=== PATIENT | male | born 1975 | race Caucasian/White ===

== ENCOUNTER 2017-08-30 19:12 | Emergency (ER) | payer OTHER | END 2017-08-30 20:30 | disposition left against medical advice (07) | LOC: ER 19:12 | DX: Z53.21 Procedure and treatment not carried out due to patient leaving prior to being seen by health care provider (principal) ==

== ENCOUNTER 2017-09-12 01:11 | Emergency (ER) | payer OTHER ==
[~2017-09-12] VITALS: Ht 182.9 cm; Wt 136.1 kg
--- NOTE | ~2017-09-12 | EKG ---
[address] [place] [address] ELECTROCARDIOGRAM REPORT Name: LINWOODSCHUYLER Keren Room #: [facility] [id number] Admission: 09/12/17 Attend Phys: Discharge: 09/12/17 Date of : 71 Report #: [id number] THIS REPORT FOR: //name// [facility] ED Test Date: 2017-09-12 Test Time: 01:25:00 Pat Name: SCHUYLER PALUMBO Department: Room: Gender: Typist: ANIKA : 1975 Requested By: John Rachel Order Number: [id number] MD: Foster Valenzuela Measurements Intervals [place] Rate: 108 P: 29 TN: 137 QRS: -4 QRSD: 93 T: 9 QT: 308 QTc: 413 Interpretive Statements Sinus tachycardia Low voltage, precordial leads No previous ECG available for comparison Electronically Signed On 09-12-2017 7:47:57 [employer] by Foster Valenzuela [email or web address] <ELECTRONICALLY SIGNED> By: Foster Valenzuela MD 09/12/17 0747 0125 0125 MD MARIAJOSE Vaughn
[2017-09-12] MEDS ORDERED: HEARTBURN RELIE20 MG PO (01:18)
[2017-09-12] MEDS ORDERED: NORCO 5-325 TA1 EACH PO (02:51)
[2017-09-12] MEDS ORDERED: NAPROSYN500 MG PO (02:51)
== END 2017-09-12 03:00 | disposition home or self-care (01) ==
LOC: ER 01:11
DX: M25.512 Pain in left shoulder (principal)

== ENCOUNTER 2017-10-23 19:39 | Emergency (ER) | payer OTHER ==
[~2017-10-23] VITALS: Ht 182.9 cm; Wt 127.0 kg
[~2017-10-23 19:39] MED LIST: HEARTBURN RELIE20 MG PO; NAPROSYN500 MG PO; NORCO 5-325 TA1 EACH PO
[2017-10-23] MEDS ORDERED: AMOXICILLIN500 M1 PO (21:32)
[2017-10-23] MEDS ORDERED: TESSALON PERLE100 MG PO (21:32)
[2017-10-23] MEDS ORDERED: IBUPROFEN 600600 M1 PO (21:32)
== END 2017-10-23 21:52 | disposition home or self-care (01) ==
LOC: ER 19:39
DX: J06.9 Acute upper respiratory infection, unspecified (principal); H66.93 Otitis media, unspecified, bilateral; F17.210 Nicotine dependence, cigarettes, uncomplicated